=== PATIENT | male | born 1945 | race Caucasian/White ===

== ENCOUNTER → 2017-07-21 | Outpatient (CLI) | payer MEDICARE, BC ==
[~2017-07-21] MED LIST: 24HOUR ALLERGY10 MG; ASPIRIN PO; ATENOLOL PO; DIPHENYDRAMINE25 MG PO; FISH OIL 1,0001 EAC3 PO; IBUPROFEN PM C1 EACH PO; KEPPRA500 MG PO; KEPPRA750 MG PO; LOPID600 MG PO
== END | disposition home or self-care (01) ==
LOC: CECH 13:08
DX: R06.02 Shortness of breath (principal); I35.2 Nonrheumatic aortic (valve) stenosis with insufficiency; I27.2 Other secondary pulmonary hypertension; I36.1 Nonrheumatic tricuspid (valve) insufficiency; I51.7 Cardiomegaly
CPT/HCPCS: 93306